=== PATIENT | female | born 1985 | race American Indian/Alaskan Native ===

== ENCOUNTER 2018-11-04 09:21 | Emergency (ER) | payer OTHER ==
[2018-11-04 09:39] VITALS: BP 146/101
[2018-11-04 10:40] LABS: Basophils # (Auto) 0.1 K/mm3 (0.0-0.1); Basophils % (Auto) 0.6 % (0.0-1.8); Eosinophils # (Auto) 0.1 K/mm3 (0.0-0.4); Hematocrit 38.7 % (30.3-42.9); Hemoglobin 13.1 gm/dl (10.1-14.3); Lymphocytes # (Auto) 2.6 K/mm3 (1.2-5.4); Lymphocytes % (Auto) 27.8 % (13.4-35.0); Mean Corpuscular HGB Conc 34 % (30-34); Mean Corpuscular Volume 89 fl (79-97); Monocytes # (Auto) 0.6 K/mm3 (0.0-0.8); Monocytes % (Auto) 6.6 % (0.0-7.3); Platelet Count 278 K/mm3 (140-440); Red Blood Count 4.34 M/mm3 (3.65-5.03); Red Cell Distribution Width 14.5 % (13.2-15.2)
[2018-11-04 10:48] LABS: BUN/Creatinine Ratio 18; Blood Urea Nitrogen 14 mg/dL (7-17); Calcium 9.2 mg/dL (8.4-10.2); Hemolysis Index 9
[2018-11-04 10:52] LABS: Bacteria,Urine 1+ /HPF (Negative); Bilirubin,Urine NEG (Negative); Blood,Urine SM (Negative); Color,Urine Yellow (Yellow); Mucus,Urine FEW /HPF; Protein,Urine <15 mg/dL mg/dL (Negative); Urobilinogen,Urine < 2.0 mg/dL (<2.0)
[2018-11-04 10:53] LABS: HCG Qualitative,Urine Negative (Negative)
[2018-11-04 11:05] LABS: Alanine Aminotransferase 14 units/L (7-56); Albumin 4.1 g/dL (3.9-5)
[2018-11-04] MEDS ORDERED: K-DUR PO ONE (11:05)
[2018-11-04 11:06] LABS: Bilirubin,Direct < 0.2 mg/dL (0-0.2)
--- NOTE | 2018-11-04 11:15 | Emergency Department Report ---
HPI - General Chief Complaint: Vaginal Bleeding Time Seen by Provider: 11/04/18 10:07 - HPI HPI: 32-year-old female presents to the emergency department with multiple complaints. She has been dealing with some abdominal pain, chest pain, shortness of breath and dizziness for which she went to an urgent care on Monday, 5 days ago, and was placed on prednisone, lactulose, doxycycline, stool softeners and Bentyl. She has been taking his medications without much relief. This morning, around 4 AM, the patient says that she had heavy vaginal bleeding that has now stopped. However at that time she says it was "like a faucet." The patient is due for her menstrual cycle but they have been irregular since she had a miscarriage back in June. She denies any other past medical history. The abdominal pain is mostly in the upper quadrants. The aime st pain is midsternal. No recent travel or sick contacts at home. She denies any tobacco or illicit drug use. ED Past Medical Hx - Past Medical History Previous Medical History?: No - Surgical History Past Surgical History?: No - Social History Smoking Status: Never Smoker Substance Use Type: None ED Review of Systems ROS: Stated complaint: CHEST PAIN/VAG BLEED/ABD PAIN Other details as noted in HPI Comment: All other systems reviewed and negative Constitutional: denies: chills, fever Eyes: denies: eye pain, vision change ENT: denies: ear pain, throat pain Respiratory: cough, shortness of breath Cardiovascular: chest pain. denies: palpitations Gastrointestinal: abdominal pain. denies: vomiting Genitourinary: abnormal menses. denies: dysuria Musculoskeletal: denies: back pain, arthralgia Skin: denies: rash, lesions Neurological: denies: weakness, numbness Physical Exam - Physical Exam Vital Signs: Vital Signs 11/04/18 11/04/18 09:37 10:31 Temperature 98.1 F Pulse Rate 93 H Respiratory 16 17 Rate Blood Pressure 146/101 O2 Sat by Pulse 100 Oximetry Physical Exam: GENERAL: The patient is well-developed well-nourished. HENT: Normocephalic. Atraumatic. Patient has moist mucous membranes. EYES: Extraocular motions are intact. NECK: Supple. Trachea is midline. CHEST/LUNGS: Clear to auscultation. There is no respiratory distress noted. HEART/CARDIOVASCULAR: Regular. There is no tachycardia. There is no murmur. ABDOMEN: Abdomen is soft, nontender. Patient has normal bowel sounds. There is no abdominal distention. SKIN: Skin is warm and dry. NEURO: The patient is awake, alert, and oriented. The patient is cooperative. The patient has normal speech. MUSCULOSKELETAL: There is no obvious deformity. There is no evidence of acute injury. ED Course Vital Signs 11/04/18 11/04/18 09:37 10:31 Temperature 98.1 F Pulse Rate 93 H Respiratory 16 17 Rate Blood Pressure 146/101 O2 Sat by Pulse 100 Oximetry ED Medical Decision Making - Lab Data Result diagrams: 11/04/18 10:14 11/04/18 10:14 - EKG Data -: EKG Interpreted by Me EKG shows normal: sinus rhythm, axis, intervals, QRS complexes, ST-T waves (flattened T waves) Rate: normal - EKG Data When compared to previous EKG there are: previous EKG unavailable Interpretation: other (flattened T waves) - Radiology Data Radiology results: report reviewed, image reviewed interpreted by me: Chest x-ray does not show any acute process. There are no pleural effusions, obvious pneumonia and there is no pneumothorax. Abdominal x-ray shows nonspecific nonobstructive bowel gas. ULTRASOUND ABDOMEN, LIMITED (RIGHT UPPER QUADRANT) INDICATION: upper abd pain. Right upper quadrant pain. COMPARISON: None available. FINDINGS: Pancreas: Visualized portion shows no significant abnormality. Liver: Fatty liver. Gallbladder: Normal. Bile ducts: Normal. Common Bile Duct measures 7 mm. Free fluid: None. Additional Findings: None. IMPRESSION: 1. No acute sonographic abnormality of the right upper quadrant. Fatty liver - Medical Decision Making This patient presents to the emergency department with multiple complaints that included some previous chest pain, epigastric or upper abdominal pain, one episode of heavy vaginal bleeding. On examination she does not appear in any acute distress. EKG showed flattened T waves but otherwise no signs of ST elevation VT or dysrhythmia. Chest x-ray did not show any focal consolidation, pneumothorax, pleural effusions, pneumonia, or any other acute process. Abdominal x-ray shows some nonspecific nonobjective bowel gas and some increased stool volume. Patient's labs were unremarkable including CBC, metabolic panel, troponin, d-dimer and urinalysis, except for some mild hypokalemia that was replaced with potassium chloride. An ultrasound was done that does not show any signs of cholelithiasis, cholecystitis, pancreatitis or any other acute process and just shows some fatty liver disease. The patient has a primary care physician for follow-up. Her examination, labs and imaging have been mostly negative or unremarkable and she appears safe for discharge home at this time. She has been encouraged to see her primary care physician but is also given a referral for cardiology, gastroenterology and COMPLAINT INVESTIGATOR. She has been instructed to return to the emergency department with any return of her chest pain, worsening of her symptoms, with any acute distress. Critical Care Time: No Critical care attestation.: If time is entered above; I have spent that time in minutes in the direct care of this critically ill patient, excluding procedure time. ED Disposition Clinical Impression: Intermittent chest pain, Dysfunctional uterine bleeding, Hypokalemia Abdominal pain Qualifiers: Abdominal location: upper abdomen, unspecified Qualified Code(s): R10.10 - Upper abdominal pain, unspecified Disposition: TO HOME OR SELFCARE Is pt being admited?: No Condition: Stable Instructions: Chest Pain (ED), Dysfunctional Uterine Bleeding (ED), Hypokalemia (ED), Abdominal Pain (ED) Additional Instructions: Please follow-up with your primary care physician in the next few days. I am going to give you some referrals for cardiology, gastroenterology, and COMPLAINT INVESTIGATOR to follow up regarding your intermittent chest pains, your abdominal pain, and your abnormal vaginal bleeding, respectively. Return to the emergency department with any return of chest pain, worsening of your symptoms, any acute distress. Referrals: RAFAEL MOTA MD [Staff Physician] - 3-5 Days CISCO BARCENAS MD [Staff Physician] - 3-5 Days [facility] [Provider Group] - 3-5 Days [facility] [Provider Group] - 3-5 Days Time of Disposition: 14:23 Heart Score - HEART Score History: Slightly suspicious EKG: Normal Age: < 45 Risk factors: No known risk factors Troponin: < normal limit HEART Score: 0 - Critical Actions Critical Actions: 0-3 pts:0.9-1.7%risk of adverse cardiac event.Candidate for discharge
--- NOTE | 2018-11-04 11:47 | XRay Report ---
Acute abdomen series 3 views 1117 INDICATION: Abdominal pain and nausea for over one week Lung jensen appear clear. No pneumoperitoneum is noted. Bowel gas pattern shows moderate stool in the colon without dilatation. This might indicate mild constipation. No evidence of bowel obstruction is seen. Calcifications of the left pelvis appear unlikely to be urinary. Signer Name: Steve Mejia MD Signed: 11/04/2018 11:43 AM Workstation Name: [id number]
--- NOTE | 2018-11-04 13:54 | Ultrasound Report ---
ULTRASOUND ABDOMEN, LIMITED (RIGHT UPPER QUADRANT) INDICATION: upper abd pain. Right upper quadrant pain. COMPARISON: None available. FINDINGS: Pancreas: Visualized portion shows no significant abnormality. Liver: Fatty liver. Gallbladder: Normal. Bile ducts: Normal. Common Bile Duct measures 7 mm. Free fluid: None. Additional Findings: None. IMPRESSION: 1. No acute sonographic abnormality of the right upper quadrant. Fatty liver Signer Name: Say Askew MD Signed: 11/04/2018 1:50 PM Workstation Name: [id number]
== END 2018-11-04 14:34 | disposition home or self-care (01) ==
LOC: ED 09:21
DX: E87.6 Hypokalemia (principal); R10.10 Upper abdominal pain, unspecified; R07.89 Other chest pain; N93.8 Other specified abnormal uterine and vaginal bleeding
CPT/HCPCS: 36415; 74022; 76705; 80048; 80076; 81001; 81025; 83690; 84484; 84702; 85025; 85379; 93005; 93010

== ENCOUNTER 2020-02-15 21:54 | Emergency (ER) | payer OTHER ==
[2020-02-16] MEDS ORDERED: ACETAMINOPHEN 325 MG TAB PO ONE (01:10)
[2020-02-16] MEDS ORDERED: IBUPROFEN 400 MG TAB PO ONE (01:10)
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
[2020-02-16 02:26] VITALS: BP 144/87
== END 2020-02-16 01:45 | disposition home or self-care (01) ==
LOC: ED 21:54
DX: S09.90XA Unspecified injury of head, initial encounter (principal); I10 Essential (primary) hypertension; E11.9 Type 2 diabetes mellitus without complications; Z00.00 Encounter for general adult medical examination without abnormal findings; W22.8XXA Striking against or struck by other objects, initial encounter; Y93.89 Activity, other specified; Y92.89 Other specified places as the place of occurrence of the external cause; Y99.8 Other external cause status
CPT/HCPCS: 99282